=== PATIENT | male | born 1965 | race Caucasian/White ===

== ENCOUNTER → 2017-06-25 | Outpatient (CLI) | payer OTHER ==
[~2017-06-25] MED LIST: LIDO4CRE4 TOP; MODA200T15 PO; NEUR300C PO
--- NOTE | 2017-06-25 10:14 | REP ---
Clinical: Contusion. Technique: AP, lateral, bilateral oblique views of the left foot. Findings: No acute fracture dislocation is appreciated. Age-related degenerative changes to the midfoot are identified as well as calcifications in the plantar fascia and moderate heal spur which are relatively stable compared to 12/26/2007. Impression: Age-related degenerative changes. Chronic plantar fascia calcifications. No acute fracture or dislocation. Signed by Urbano Kovacs MD 06/25/2017 10:05 A
== END ==
LOC: M WUC 09:33
PROVIDERS: ATTEND Physician Assistant
DX: M19.072 Primary osteoarthritis, left ankle and foot (principal); M72.2 Plantar fascial fibromatosis

== ENCOUNTER → 2017-12-31 | Outpatient (REF) | payer OTHER | LOC: M LAB REF 12:16 | DX: J02.9 Acute pharyngitis, unspecified (principal) ==

== ENCOUNTER → 2019-04-21 | Outpatient (REF) | payer OTHER | LOC: M LAB REF 12:23 | PROVIDERS: ATTEND Physician Assistant | DX: J02.9 Acute pharyngitis, unspecified (principal) ==

== ENCOUNTER → 2021-06-02 | Outpatient (CLI) | payer OTHER ==
--- NOTE | 2021-06-02 15:10 | REP ---
INDICATION: PAIN RIGHT KNEE. COMPARISON: None. TECHNIQUE: Standing bilateral AP view of the knees with standing lateral view of the right knee and sunrise view of the right knee. FINDINGS: The standing AP views show left knee bicompartmental narrowing particularly affecting the medial compartment where there is heavy marginal osteophytosis and subchondral sclerosis. More moderate marginal osteophyte formation is seen involving the lateral compartment. Mature tunnel defects are seen 1 in the distal femur and the other in the proximal tibia with cancellous anchor devices from previous ACL reconstructive surgery. Three views of the right knee show mild medial compartmental narrowing and tricompartmental marginal osteophytosis with moderate patellofemoral joint space narrowing. No acute fracture, dislocation, or subluxation is seen involving either side. IMPRESSION: Chronic changes as described above. <Electronically signed by Jeyson Castillo > 06/02/21 [id number]
== END ==
LOC: M SOG 14:49
PROVIDERS: ATTEND Orthopaedic Surgery Adult Reconstructive Orthopaedic Surgery
DX: M25.561 Pain in right knee (principal)

== ENCOUNTER 2021-10-14 08:42 | Emergency (ER) | payer OTHER ==
[~2021-10-14] VITALS: Ht 180.3 cm; Wt 104.5 kg
[2021-10-14 08:43] VITALS: BP 141/85
[2021-10-14 09:43] LABS: BASO # 0.1 10^3/uL (0.0-0.2); BASO % 0.6 % (0.0-1.0); EOS # 0.2 10^3/uL (0.0-0.5); EOS % 1.9 % (0.0-3.0); HEMATOCRIT 44.9 % (42.0-52.0); HEMOGLOBIN 15.5 g/dl (13.5-17.5); LYMPH # 1.5 10^3/uL (1.5-5.0); LYMPH % 15.8 % (24.0-44.0); MEAN CORPUSCULAR HEMOGLOBIN 30.6 pg (27.0-33.0); MEAN CORPUSCULAR HGB CONC 34.5 g/dl (32.0-36.5); MEAN CORPUSCULAR VOLUME 88.6 fl (80.0-96.0); MONO # 1.2 10^3/uL (0.0-0.8); MONO % 12.3 % (2.0-8.0); NEUTROPHILS # 6.6 10^3/uL (1.5-8.5); NEUTROPHILS % 69.2 % (36.0-66.0); PLATELET COUNT, AUTOMATED 204 10^3/uL (150-450); RED BLOOD COUNT 5.07 10^6/uL (4.30-6.10); WHITE BLOOD COUNT 9.6 10^3/uL (4.0-10.0)
[2021-10-14 10:06] LABS: ALT/SGPT 30 U/L (12-78); BILIRUBIN,DIRECT 0.2 MG/DL (0.0-0.2); BILIRUBIN,TOTAL 0.8 MG/DL (0.2-1.0); BLOOD UREA NITROGEN 23 MG/DL (7-18); CALCIUM LEVEL 9.3 MG/DL (8.5-10.1); CARBON DIOXIDE LEVEL 26 MEQ/L (21-32); CHLORIDE LEVEL 107 MEQ/L (98-107); CREATININE FOR GFR 0.89 MG/DL (0.70-1.30); GLOMERULAR FILTRATION RATE > 60.0 (>56); GLUCOSE, FASTING 106 MG/DL (70-100); LIPASE 95 U/L (73-393); POTASSIUM SERUM 4.1 MEQ/L (3.5-5.1); SODIUM LEVEL 139 MEQ/L (136-145); TOTAL PROTEIN 7.3 GM/DL (6.4-8.2)
== END 2021-10-14 10:21 | disposition home or self-care (01) ==
LOC: M ED 08:42
DX: R31.9 Hematuria, unspecified (principal); I44.7 Left bundle-branch block, unspecified

== ENCOUNTER 2021-10-16 10:56 | Emergency (ER) | payer OTHER ==
[~2021-10-16] VITALS: Ht 180.3 cm; Wt 108.2 kg
[2021-10-16] MEDS ORDERED: KETOROLAC 30 MG/ML 1ML VIAL IV ONE (13:20)
[2021-10-16] MEDS ORDERED: HYDR-3713 PO (14:27)
[2021-10-16] MEDS ORDERED: ONDA4TAB6 PO (14:27)
[2021-10-16] MEDS ORDERED: FLOM0.4C39 PO (14:27)
[2021-10-16 14:45] VITALS: BP 144/76
== END 2021-10-16 14:47 | disposition home or self-care (01) ==
LOC: M ED 10:56
DX: N20.1 Calculus of ureter (principal); E78.5 Hyperlipidemia, unspecified; K21.9 Gastro-esophageal reflux disease without esophagitis
CPT/HCPCS: 74176; 96374; 99284; J1885

== ENCOUNTER → 2021-10-26 | Outpatient (CLI) | payer OTHER ==
[~2021-10-26] MED LIST changes: +FLOM0.4C39 PO; +HYDR-3713 PO; +ONDA4TAB6 PO
== END ==
LOC: M PLAIMG 08:45
PROVIDERS: ATTEND Orthopaedic Surgery Adult Reconstructive Orthopaedic Surgery
DX: M23.91 Unspecified internal derangement of right knee (principal)

== ENCOUNTER → 2022-02-15 | Outpatient (CLI) | payer OTHER ==
[~2022-02-15] MED LIST changes: +ADVI200T PO
== END ==
LOC: M LABSMTC 09:41
PROVIDERS: ATTEND Orthopaedic Surgery Adult Reconstructive Orthopaedic Surgery
DX: Z01.818 Encounter for other preprocedural examination (principal); Z11.52 Encounter for screening for COVID-19

== ENCOUNTER 2022-02-20 09:39 | Day surgery (SDC) | payer OTHER ==
[~2022-02-20] VITALS: Ht 177.8 cm; Wt 107.5 kg
[~2022-02-20 09:39] MED LIST changes: +LIDOCAINE 2% 100MG/5ML SDV (FOR ANES.) As Ordered ONE; +MIDAZOLAM INJ 2MG/2ML VIAL (J2250 PER 1MG) As Ordered ONE; +ONDANSETRON 4MG/2ML VIAL As Ordered ONE; +dexameTHASONE 4 MG/ML 1ML VIAL (J1100 PER 1MG) As Ordered ONE; +fentaNYL 100 MCG/2 ML INJECTION As Ordered ONE; +propofoL 500 MG/50 ML VIAL As Ordered ONE
[2022-02-20] MEDS ORDERED: SILD100T PO (09:54)
[2022-02-20] MEDS ORDERED: ACETAMINOPHEN 500 MG TAB PO ONE (10:25)
[2022-02-20] MEDS ORDERED: ONDANSETRON 4MG/2ML VIAL IV ONE (10:40)
[2022-02-20] MEDS ORDERED: CelecoXIB 400 MG CAP PO ONE (10:40)
[2022-02-20] MEDS ORDERED: GABAPENTIN 300 MG CAP PO ONE (10:40)
[2022-02-20] MEDS ORDERED: SUGAMMADEX SODIUM 500 MG/5 ML VIAL (BRIDION) As Ordered ONE (12:58)
[2022-02-20] MEDS ORDERED: BUPIVACAINE/EPIN 0.5% 30 ML VIAL As Ordered ONE (13:18)
[2022-02-20] MEDS ORDERED: EPINEPHrine 1MG/ML INJ 30ML MD-VIAL As Ordered ONE (13:18)
[2022-02-20] MEDS ORDERED: ROCURONIUM BROMIDE 50 MG/5 ML VIAL As Ordered ONE (13:21)
[2022-02-20] MEDS ORDERED: PHENYLephrine 500MCG 5ML (100MCG/ML) SYRINGE As Ordered ONE (13:57)
[2022-02-20] MEDS ORDERED: fentaNYL 100 MCG/2 ML INJECTION As Ordered ONE (14:13)
[2022-02-20] MEDS ORDERED: METOCLOPRAMIDE INJ 10MG/2ML VIAL (J2765 PER 1) IV PRN (15:25)
[2022-02-20] MEDS ORDERED: LR 1,000 ML IV SCH ×2 (15:25→15:30)
[2022-02-20] MEDS ORDERED: fentaNYL 100 MCG/2 ML INJECTION IV PRN (15:25)
[2022-02-20] MEDS ORDERED: oxyCODONE 5MG TAB PO PRN (15:25)
[2022-02-20] MEDS ORDERED: ONDANSETRON 4MG/2ML VIAL IV PRN (15:25)
[2022-02-20 16:20] VITALS: BP 152/67
== END 2022-02-20 16:26 | disposition home or self-care (01) ==
LOC: M SDC 09:39
PROVIDERS: ATTEND Orthopaedic Surgery Adult Reconstructive Orthopaedic Surgery
DX: M23.201 Derangement of unspecified lateral meniscus due to old tear or injury, left knee (principal); M94.261 Chondromalacia, right knee; S83.511A Sprain of anterior cruciate ligament of right knee, initial encounter; X58.XXXA Exposure to other specified factors, initial encounter; Y92.89 Other specified places as the place of occurrence of the external cause; I44.7 Left bundle-branch block, unspecified; M47.9 Spondylosis, unspecified; F41.9 Anxiety disorder, unspecified; G47.30 Sleep apnea, unspecified; R06.83 Snoring; Z87.891 Personal history of nicotine dependence
CPT/HCPCS: 29881; 93005; 97116; J0171; J1100; J2250; J2370; J2405; J3010

== ENCOUNTER 2025-07-26 10:48 | Day surgery (SDC) | payer OTHER ==
[~2025-07-26] VITALS: Ht 177.8 cm; Wt 103.1 kg
[~2025-07-26 10:48] MED LIST changes: +BUSP5TA PO; -FLOM0.4C39 PO; -LIDO4CRE4 TOP; +LIDO5CRE7 TOP; -LIDOCAINE 2% 100MG/5ML SDV (FOR ANES.) As Ordered ONE; -MIDAZOLAM INJ 2MG/2ML VIAL (J2250 PER 1MG) As Ordered ONE; +ONDA-282 PO; -ONDA4TAB6 PO; -ONDANSETRON 4MG/2ML VIAL As Ordered ONE; +SILD100T PO; +TAMS-18 PO; -dexameTHASONE 4 MG/ML 1ML VIAL (J1100 PER 1MG) As Ordered ONE; -fentaNYL 100 MCG/2 ML INJECTION As Ordered ONE; -propofoL 500 MG/50 ML VIAL As Ordered ONE
[2025-07-26 11:41] VITALS: TEMP 97.3
[2025-07-26] MEDS ORDERED: LIDOCAINE 2% 100 MG/5 ML SDV (FOR ANES.) As Ordered ONE (11:47)
[2025-07-26 12:01] VITALS: BP 122/76; O2SAT 95
== END 2025-07-26 12:03 | disposition home or self-care (01) ==
LOC: M OPP 10:48
PROVIDERS: ATTEND Internal Medicine Gastroenterology
DX: Z12.11 Encounter for screening for malignant neoplasm of colon (principal); K64.0 First degree hemorrhoids; Z79.899 Other long term (current) drug therapy